=== PATIENT | male | born 1995 | race Caucasian/White ===

== ENCOUNTER 2022-11-08 03:41 | Emergency (ER) | payer OTHER ==
[2022-11-08 03:51] VITALS: BP 133/95; PULSE 56; RESP 20; TEMP 97.9
[2022-11-08] MEDS ORDERED: KETOROLAC 15 MG/ML 1 ML VIAL IM STA (03:58)
[2022-11-08] MEDS ORDERED: ORPHENADRINE 30 MG/ML 2 ML VIAL IM STA (03:58)
[2022-11-08] MEDS ORDERED: LIDOCAINE 5% PATCH TOPICAL STA ×2 (04:03→04:09)
--- NOTE | 2022-11-08 04:27 | ED ---
General Adult HPI - General Chief complaint: Back Pain/Injury Stated complaint: Back Pain, SOB, Vomitting Time Seen by Provider: 11/08/22 03:51 Source: patient Mode of arrival: ambulatory Limitations: no limitations - History of Present Illness Initial comments: This is a 27-year-old male with no past medical history presents emergency department for mid and left sided back pain and spasms. The patient stated that he woke up today, unable to get comfortable and with continued back spasms. 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 The patient stated that he has been busy over the last week and stated that he started to experience this pain slightly last night but worsening today. The patient denied any radiation of this pain and stated that is focused on the left lateral aspect of the mid thoracic back. The patient denied any numbness or tingling in the lower extremities. The patient also denied any bowel or bladder incontinence. The patient also denied any trauma to the back. - Related Data Previous Rx's Medication Instructions Recorded Lidocaine 5% Patch [Lidoderm] 1 patch TOPICAL DAILY #12 patch 11/08/22 Naproxen [EC-Naproxen] 500 mg PO BID #30 tab 11/08/22 methocarbamoL [Robaxin-750] 750 mg PO TID #30 tab 11/08/22 Allergies Allergy/AdvReac Type Severity Reaction Status Date / Time No Known Allergies Allergy Verified 11/08/22 03:51 Review of Systems ROS Statement: Those systems with pertinent positive or pertinent negative responses have been documented in the HPI. ROS Other: All systems not noted in ROS Statement are negative. Past Medical History Past Medical History: No Reported History History of Any Multi-Drug Resistant Organisms: None Reported Past Surgical History: Tonsillectomy Past Psychological History: No Psychological Hx Reported Smoking Status: Never smoker Past Alcohol Use History: Occasional Past Drug Use History: Marijuana General Exam Limitations: no limitations General appearance: alert, in distress (In mild distress 2/2 to back pain, spasms) Head exam: Present: atraumatic, normocephalic, normal inspection Eye exam: Present: normal appearance, PERRL Pupils: Present: normal accommodation ENT exam: Present: normal exam, normal oropharynx, mucous membranes moist Neck exam: Present: normal inspection, full ROM Respiratory exam: Present: normal lung sounds bilaterally Cardiovascular Exam: Present: regular rate, normal rhythm, normal heart sounds GI/Abdominal exam: Present: soft, normal bowel sounds Extremities exam: Present: normal inspection, full ROM Back exam: Present: normal inspection, tenderness (TTP over the left lateral thoracic back, lateral to the midline spine) Neurological exam: Present: alert, oriented X3, CN II-XII intact Psychiatric exam: Present: normal affect, normal mood Skin exam: Present: warm, dry Course Vital Signs 11/08/22 03:45 Temperature 97.9 F Pulse Rate 56 L Respiratory 20 Rate Blood Pressure 133/95 O2 Sat by Pulse 98 Oximetry Medical Decision Making - Medical Decision Making Was pt. sent in by a medical professional or institution (, PA, PERFORMING ARTS ROAD MANAGER, urgent care, hospital, or care home...) When possible be specific @ -No Did you speak to anyone other than the patient for history (EMS, parent, family, police, friend...)? What history was obtained from this source @ -No Did you review nursing and triage notes (agree or disagree)? Why? @ -I reviewed and agree with nursing and triage notes Were old charts reviewed (outside hosp., previous admission, EMS record, old EKG, old radiological studies, urgent care reports/EKG's, care home records)? Report findings @ -No old charts were reviewed Differential Diagnosis (chest pain, altered mental status, abdominal pain women, abdominal pain men, vaginal bleeding, weakness, fever, dyspnea, syncope, headache, dizziness, GI bleed, back pain, seizure, CVA, palpatations, mental health)? @ -Low back muscle strain, low back muscle spasm, muscle contusion EKG interpreted by me (3pts min.). @ -None X-rays interpreted by me (1pt min.). @ -None done CT interpreted by me (1pt min.). @ -None done U/S interpreted by me (1pt. min.). @ -None done What testing was considered but not performed or refused? (CT, X-rays, U/S, labs)? Why? @ -X-rays was considered however the patient denied of any midline spinal tenderness noted and had reproducible left lower back muscle pain and therefore imaging was not needed at this time. What meds were considered but not given or refused? Why? @ -None Did you discuss the management of the patient with other professionals (professionals i.e. , PA, PERFORMING ARTS ROAD MANAGER, lab, RT, psych nurse, social sciences chair, tool room machinist, teacher, neighborhood conservation officer, casework manager)? Give summary @ -No Was smoking cessation discussed for >3mins.? @ -Yes Was critical care preformed (if so, how long)? @ -No Were there social determinants of health that impacted care today? How? (Homelessness, low income, unemployed, alcoholism, drug addiction, tr ansportation, low edu. Level, literacy, decrease access to med. care, custodial, rehab)? @ -No Was there de-escalation of care discussed even if they declined (Discuss DNR or withdrawal of care, Hospice)? DNR status @ -No What co-morbidities impacted this encounter? (DM, HTN, Smoking, COPD, CAD, Cancer, CVA, ARF, Chemo, Hep., AIDS, mental health diagnosis, sleep apnea, morbid obesity)? @ -None Was patient admitted / discharged? Hospital course, mention meds given and route, prescriptions, significant lab abnormalities, going to OR and other pertinent info. @ -The patient was seen and evaluated emergency department. Physical exam, the patient was resting in bed with mild distress secondary to back spasm and pain. Due to the patient's reproducible left lower back pain and not midline pain, there was no imaging needed and therefore only needed medications at this time. The patient was given IM Toradol, IM Norflex and lidocaine patch. The patient was observed in the emergency department on reevaluation, had improvement of his pain. The patient was deemed stable for discharge and told to continue to take the medications as prescribed including naproxen, Robaxin and Lidoderm patches. The patient was also advised report back to the emergency department if his pain and symptoms became acutely worse. The patient was agreeable to this and all his questions were answered appropriately. The patient was discharged home in stable condition with his significant other. Undiagnosed new problem with uncertain prognosis? @ -No Drug Therapy requiring intensive monitoring for toxicity (Heparin, Nitro, Insulin, Cardizem)? @ -No Were any procedures done? @ -No Diagnosis/symptom? @ -Left lower back muscle strain versus spasm Acute, or Chronic, or Acute on Chronic? @ -Acute Uncomplicated (without systemic symptoms) or Complicated (systemic symptoms)? @ -Uncomplicated Side effects of treatment? @ -No Exacerbation, Progression, or Severe Exacerbation? @ -No Poses a threat to life or bodily function? How? (Chest pain, USA, [place], pneumonia, PE, COPD, DKA, ARF, appy, cholecystitis, CVA, Diverticulitis, Homicidal, Suicidal, threat to staff... and all critical care pts) @ -No Disposition Clinical Impression: Back strain, Back spasm Disposition: HOME SELF-CARE Condition: Stable Instructions (If sedation given, give patient instructions): Low Back Strain (ED), Muscle Spasm (ED) Prescriptions: Naproxen [EC-Naproxen] 500 mg PO BID #30 tab Lidocaine 5% Patch [Lidoderm] 1 patch TOPICAL DAILY #12 patch methocarbamoL [Robaxin-750] 750 mg PO TID #30 tab Is patient prescribed a controlled substance at d/c from ED?: No Referrals: None,Stated [Primary Care Provider] - 1-2 days Time of Disposition: 05:00
[2022-11-08] MEDS ORDERED: LIDOCAINE 5% PATCH TOPICAL SCH (09:00)
== END 2022-11-08 05:07 | disposition home or self-care (01) ==
LOC: EC 03:41
DX: S39.012A Strain of muscle, fascia and tendon of lower back, initial encounter (principal); M62.830 Muscle spasm of back; F12.90 Cannabis use, unspecified, uncomplicated; X50.9XXA Other and unspecified overexertion or strenuous movements or postures, initial encounter
CPT/HCPCS: 99284; 96372 ×2; J2360; J1885

== ENCOUNTER 2022-11-10 17:52 | Emergency (ER) | payer OTHER ==
[2022-11-10 18:04] VITALS: TEMP 98.4
[2022-11-10] MEDS ORDERED: SODIUM CHLORIDE 0.9% 1,000 ML IV STA ×2 (19:45→20:25)
[2022-11-10] MEDS ORDERED: ONDANSETRON 4 MG/2 ML VIAL IVP STA (19:45)
[2022-11-10] MEDS ORDERED: KETOROLAC 15 MG/ML 1 ML VIAL IVP STA (19:45)
[2022-11-10 20:12] LABS: Basophils % (A) 0 %; Eosinophils # (A) 0.1 k/uL (0-0.7); Eosinophils % (A) 1 %; HCT 50.1 % (39.0-53.0); HGB 17.7 gm/dL (13.0-17.5); Lymphocytes # (A) 1.6 k/uL (1.0-4.8); Lymphocytes % (A) 16 %; MCH 31.2 pg (25.0-35.0); MCHC 35.2 g/dL (31.0-37.0); MCV 88.5 fL (80.0-100.0); Mean Platelet Volume 9.6; Monocytes # (A) 0.4 k/uL (0-1.0); Monocytes % (A) 4 %; Neutrophils # (A) 7.9 k/uL (1.3-7.7); Neutrophils % (A) 78 %; Platelet Count 175 k/uL (150-450); RBC 5.66 m/uL (4.30-5.90); RDW 12.6 % (11.5-15.5); WBC 10.1 k/uL (3.8-10.6)
[2022-11-10 20:23] LABS: Amorphous Sediment,Urine Many /hpf; Appearance,Urine Turbid (Clear); Bilirubin,Urine Negative (Negative); Blood,Urine Negative (Negative); Color,Urine Yellow; Glucose,Urine (UA) Negative (Negative); Ketones,Urine Trace (Negative); Leukocyte Esterase,Urine Negative (Negative); Mucus,Urine Rare /hpf; Nitrite,Urine Negative (Negative); PH, Urine 8.5 (5.0-8.0); Protein,Urine 1+ (Negative); Specific Gravity,Urine 1.018 (1.001-1.035); Urobilinogen,Urine <2.0 mg/dL (<2.0)
[2022-11-10 20:24] LABS: ALT 29 U/L (4-49); AST 34 U/L (17-59); African American GFR (CKD) >90 (>60 ml/min/1.73 sqM); Albumin 5.5 g/dL (3.5-5.0); Alkaline Phosphatase 72 U/L (38-126); Anion Gap 12 mmol/L; Blood Urea Nitrogen 19 mg/dL (9-20); Calcium 10.3 mg/dL (8.4-10.2); Carbon Dioxide 24 mmol/L (22-30); Chloride 105 mmol/L (98-107); Glucose 121 mg/dL (74-99); Non-African American GFR(CKD) >90 (>60 ml/min/1.73 sqM); Sodium 141 mmol/L (137-145); Total Bilirubin 0.7 mg/dL (0.2-1.3)
--- NOTE | 2022-11-10 20:43 | CT ---
EXAMINATION TYPE: CT abdomen pelvis w con CT DLP: 831 mGycm, Automated exposure control for dose reduction was used. DATE OF EXAM: 11/10/2022 8:25 PM COMPARISON: None CLINICAL INDICATION:Male, 27 years old with history of periumbilical pain; umbilical abd pain TECHNIQUE: Axial CT of the abdomen and pelvis. Sagittal and coronal reformats were created on a [employer] workstation. Contrast used:100ml mL of Isovue 300 with IV Contrast, Oral contrast used: without Oral Contrast FINDINGS: LOWER CHEST: Unremarkable ABDOMEN LIVER: Unremarkable GALLBLADDER AND BILE DUCTS: Unremarkable. PANCREAS: Unremarkable. SPLEEN: Unremarkable. ADRENAL GLANDS: Unremarkable. KIDNEYS AND URETERS: No evidence of hydronephrosis or renal calculus. The ureters are unremarkable. PELVIS BLADDER: Unremarkable REPRODUCTIVE: Unremarkable. ABDOMEN & PELVIS STOMACH AND BOWEL: No evidence of bowel obstruction. The appendix is normal PERITONEUM/RETROPERITONEUM: No evidence of pneumoperitoneum or free fluid. VASCULATURE: No evidence of aortic aneurysm. There are 2 right renal arteries MUSCULOSKELETAL: No acute osseous abnormalities LYMPH NODES: No gross evidence for lymphadenopathy. SOFT TISSUE/ABDOMINAL WALL: Unremarkable IMPRESSION: No evidence for acute process. The appendix is normal. No obstructive uropathy or renal calculus.
[2022-11-10 20:44] VITALS: BP 149/82; PULSE 50; RESP 18
--- NOTE | 2022-11-10 21:01 | ED ---
Abdominal Pain HPI - General Chief Complaint: Abdominal Pain Stated Complaint: Abd pain Time Seen by Provider: 11/10/22 19:43 Source: patient Mode of arrival: ambulatory Limitations: no limitations - History of Present Illness Initial Comments: Patient is 27-year-old male who presents to emergency department for abdominal pain. This started today in his lower abdomen. There is no radiation. Patient states he feels constipated he has not had bowel movement in 4 days which is unlikely him. He had 2 episodes of vomiting prior to arrival. No fever or chills. Patient was evaluated in our emergency department a few days ago for back pain and states that is improving. No side pain, burning with urination, blood in the urine. No history of abdominal surgery. - Related Data Previous Rx's Medication Instructions Recorded Lidocaine 5% Patch [Lidoderm] 1 patch TOPICAL DAILY #12 patch 11/08/22 Naproxen [EC-Naproxen] 500 mg PO BID #30 tab 11/08/22 methocarbamoL [Robaxin-750] 750 mg PO TID #30 tab 11/08/22 Docusate [Colace] 100 mg PO DAILY #7 capsule 11/10/22 Ibuprofen [Motrin] 600 mg PO Q8HR PRN #30 tab 11/10/22 Ondansetron Odt [Zofran Odt] 4 mg PO Q8HR PRN #10 tab 11/10/22 polyethylene glycoL 3350 [Miralax] 17 gm PO DAILY #3 packet 11/10/22 Allergies Allergy/AdvReac Type Severity Reaction Status Date / Time No Known Allergies Allergy Verified 11/10/22 18:03 Review of Systems ROS Statement: Those systems with pertinent positive or pertinent negative responses have been documented in the HPI. ROS Other: All systems not noted in ROS Statement are negative. Past Medical History Past Medical History: No Reported History History of Any Multi-Drug Resistant Organisms: None Reported Past Surgical History: Tonsillectomy Past Psychological History: No Psychological Hx Reported Smoking Status: Never smoker Past Alcohol Use History: Occasional Past Drug Use History: Marijuana General Exam Limitations: no limitations General appearance: alert, in no apparent distress Eye exam: Present: normal appearance, PERRL, EOMI. Absent: scleral icterus, conjunctival injection, periorbital swelling Neck exam: Present: normal inspection. Absent: tenderness, meningismus, lymph adenopathy Respiratory exam: Present: normal lung sounds bilaterally. Absent: respiratory distress, wheezes, rales, rhonchi, stridor Cardiovascular Exam: Present: regular rate, normal rhythm, normal heart sounds. Absent: systolic murmur, diastolic murmur, rubs, gallop, clicks GI/Abdominal exam: Present: soft, normal bowel sounds. Absent: distended, tenderness, guarding, rebound, rigid Back exam: Present: normal inspection, full ROM. Absent: CVA tenderness (R), CVA tenderness (L), paraspinal tenderness, vertebral tenderness Neurological exam: Present: alert, oriented X3, CN II-XII intact Psychiatric exam: Present: normal affect, normal mood Skin exam: Present: warm, dry, intact, normal color. Absent: rash Course Vital Signs 11/10/22 11/10/22 18:02 20:44 Temperature 98.4 F 98.4 F Pulse Rate 62 50 L Respiratory 20 18 Rate Blood Pressure 161/74 149/82 O2 Sat by Pulse 100 100 Oximetry Medical Decision Making - Medical Decision Making Was pt. sent in by a medical professional or institution (, PA, SENIOR PROJECT ACCOUNTANT, urgent care, hospital, or halfway...) When possible be specific @ -[No] Did you speak to anyone other than the patient for history (EMS, parent, family, police, friend...)? What history was obtained from this source @ -[No] Did you review nursing and triage notes (agree or disagree)? Why? @ -[I reviewed and agree with nursing and triage notes] Were old charts reviewed (outside hosp., previous admission, EMS record, old EKG, old radiological studies, urgent care reports/EKG's, halfway records)? Report findings @ -[No old charts were reviewed] Differential Diagnosis (chest pain, altered mental status, abdominal pain women, abdominal pain men, vaginal bleeding, weakness, fever, dyspnea, syncope, headache, dizziness, GI bleed, back pain, seizure, CVA, palpatations, mental health)? @ -Differential Abdominal Pain Men: Appendicitis, cholecystitis, diverticulosis, ischemic bowel, pancreatitis, hepatitis, UTI, gastroenteritis, AAA, incarcerated hernia, bowel obstruction, constipation, inflammatory bowel, hepatitis, peptic ulcer disease, splenic infarction, perforated viscus, testicular torsion, this is not meant to be an all-inclusive list EKG interpreted by me (3pts min.). @ -[As above] X-rays interpreted by me (1pt min.). @ -[None done] CT interpreted by me (1pt min.). @ -CT of the abdomen and pelvis with contrast shows no acute process. There is no evidence of obstructive uropathy or renal calculus. Normal appendix U/S interpreted by me (1pt. min.). @ -[None done] What testing was considered but not performed or refused? (CT, X-rays, U/S, labs)? Why? @ -[None] What meds were considered but not given or refused? Why? @ -[None] Did you discuss the management of the patient with other professionals (professionals i.e. , PA, SENIOR PROJECT ACCOUNTANT, lab, RT, psych nurse, social media sr strategy manager, podiatrist orthopedic, teacher, radio electronics officer, registered nurse hh case manager)? Give summary @ -[No] Was smoking cessation discussed for >3mins.? @ -[No] Was critical care preformed (if so, how long)? @ -[No] Were there social determinants of health that impacted care today? How? (Homelessness, low income, unemployed, alcoholism, drug addiction, transportation, low edu. Level, literacy, decrease access to med. care, nursing home, rehab)? @ -[No] Was there de-escalation of care discussed even if they declined (Discuss DNR or withdrawal of care, Hospice)? DNR status @ -[No] What co-morbidities impacted this encounter? (DM, HTN, Smoking, COPD, CAD, Cancer, CVA, ARF, Chemo, Hep., AIDS, mental health diagnosis, sleep apnea, morbid obesity)? @ -[None] Was patient admitted / discharged? Hospital course, mention meds given and route, prescriptions, significant lab abnormalities, going to OR and other pertinent info. @ -Patient presenting for abdominal pain and vomiting. Patient well-appearing and in no apparent distress. The abdomen is soft and nontender. Laboratory studies obtained patient is dehydrated otherwise unremarkable. CT of the abdomen and pelvis with contrast shows no acute process including kidney stone and appendicitis Patient treated in the emergency department with improvement he did not have any further episodes of vomiting. Patient will be placed on a constipation regimen he is encouraged to increase water and fiber intake Undiagnosed new problem with uncertain prognosis? @ -[No] Drug Therapy requiring intensive monitoring for toxicity (Heparin, Nitro, Insulin, Cardizem)? @ -[No] Were any procedures done? @ -[No] Diagnosis/symptom? @ Constipation Acute, or Chronic, or Acute on Chronic? @ -Acute Uncomplicated (without systemic symptoms) or Complicated (systemic symptoms)? @ -Uncomplicated Side effects of treatment? @ -[No] Exacerbation, Progression, or Severe Exacerbation? @ -[No] Poses a threat to life or bodily function? How? (Chest pain, USA, CT, pneumonia, PE, COPD, DKA, ARF, appy, cholecystitis, CVA, Diverticulitis, Homicidal, Suicidal, threat to staff... and all critical care pts) @ -[No] Dr. Jose is my attending - Lab Data Result diagrams: 11/10/22 19:49 11/10/22 19:49 Lab Results 11/10/22 11/10/22 11/10/22 Range/Units 19:49 19:49 19:49 WBC 10.1 (3.8-10.6) k/uL RBC 5.66 (4.30-5.90) m/uL Hgb 17.7 H (13.0-17.5) gm/dL Hct 50.1 (39.0-53.0) % MCV 88.5 (80.0-100.0) fL MCH 31.2 (25.0-35.0) pg MCHC 35.2 (31.0-37.0) g/dL RDW 12.6 (11.5-15.5) % Plt Count 175 (150-450) k/uL MPV 9.6 Neutrophils % 78 % Lymphocytes % 16 % Monocytes % 4 % Eosinophils % 1 % Basophils % 0 % Neutrophils # 7.9 H (1.3-7.7) k/uL Lymphocytes # 1.6 (1.0-4.8) k/uL Monocytes # 0.4 (0-1.0) k/uL Eosinophils # 0.1 (0-0.7) k/uL Basophils # 0.0 (0-0.2) k/uL Sodium 141 (137-145) mmol/L Potassium 4.0 (3.5-5.1) mmol/L Chloride 105 (98-107) mmol/L Carbon Dioxide 24 (22-30) mmol/L Anion Gap 12 mmol/L BUN 19 (9-20) mg/dL Creatinine 0.98 (0.66-1.25) mg/dL Est GFR (CKD-EPI)AfAm >90 (>60 ml/min/1.73 sqM) Est GFR (CKD-EPI)NonAf >90 (>60 ml/min/1.73 sqM) Glucose 121 H (74-99) mg/dL Calcium 10.3 H (8.4-10.2) mg/dL Total Bilirubin 0.7 (0.2-1.3) mg/dL AST 34 (17-59) U/L ALT 29 (4-49) U/L Alkaline Phosphatase 72 (38-126) U/L Total Protein 9.0 H (6.3-8.2) g/dL Albumin 5.5 H (3.5-5.0) g/dL Urine Color Yellow Urine Appearance Turbid (Clear) Urine pH 8.5 H (5.0-8.0) Ur Specific [place] 1.018 (1.001-1.035) Urine Protein 1+ H (Negative) Urine Glucose (UA) Negative (Negative) Urine Ketones Trace H (Negative) Urine Blood Negative (Negative) Urine Nitrite Negative (Negative) Urine Bilirubin Negative (Negative) Urine Urobilinogen <2.0 (<2.0) mg/dL Ur Leukocyte Esterase Negative (Negative) Amorphous Sediment Many H (None) /hpf Urine Mucus Rare H (None) /hpf Disposition Clinical Impression: Constipation Disposition: HOME SELF-CARE Condition: Good Instructions (If sedation given, give patient instructions): Constipation (ED), High Fiber Diet (ED) Additional Instructions: Increase water intake. It is important to follow a high fiber diet with whole foods avoiding any process foods. Take medication as directed. Return to the emergency department if you experience new, concerning, or worsening symptoms. Prescriptions: Docusate [Colace] 100 mg PO DAILY #7 capsule polyethylene glycoL 3350 [Miralax] 17 gm PO DAILY #3 packet Ibuprofen [Motrin] 600 mg PO Q8HR PRN #30 tab PRN Reason: Pain Ondansetron Odt [Zofran Odt] 4 mg PO Q8HR PRN #10 tab PRN Reason: Nausea Is patient prescribed a controlled substance at d/c from ED?: No Referrals: None,Stated [Primary Care Provider] - 1-2 days
== END 2022-11-10 21:35 | disposition home or self-care (01) ==
LOC: EC 17:52
DX: K59.00 Constipation, unspecified (principal); F12.90 Cannabis use, unspecified, uncomplicated
CPT/HCPCS: 36415; 80053; 85025; 81001; 74177; 99284; 96374; 96375; 96361 ×2; J2405; J1885

== ENCOUNTER → 2023-02-07 | Outpatient (CLI) | payer OTHER ==
[2023-02-08 02:31] LABS: ALT 39 U/L (10-49); AST 29 U/L (14-35); Chol/HDL Ratio 5.39 Ratio; LDL Cholesterol,Calculated 89.1 mg/dL (0.0-131.0)
== END | disposition home or self-care (01) ==
LOC: LABWHC1 15:46
PROVIDERS: ATTEND Internal Medicine Clinical Cardiac Electrophysiology
DX: E78.2 Mixed hyperlipidemia (principal)
CPT/HCPCS: 36415; 80061; 84450; 84460